=== PATIENT | male | born 1995 | race Caucasian/White ===

== ENCOUNTER 2016-11-27 17:03 | Inpatient (IN) | payer OTHER ==
--- NOTE | 2016-11-27 19:20 | EDPHY ---
Mental Health General Previous Psychiatric History: substance abuse, depression Smoking Status: Never smoked Time Patient Placed on Detainer: 19:09 Time Patient Placed on M1 Hold: 23:00 Time Medically Cleared for Psychiatric Evaluation: 20:02 Time of Transfer of Care: 00:[address] To [address]:: Tod Course: eval by mental health, awaiting acceptance to inpatient bed Narrative: CHIEF COMPLAINT: depression HISTORY OF PRESENT ILLNESS: 20-year-old male presents emergency department with his mother who was recommended to come here by his psychologist for depression. Patient has had worsening depression for the past 7 months, he stopped taking his Pristiq 1 year ago as he thought he was doing better. Patient started back to school this [place] and midway through July he stopped going to classes and stayed in his room all day, at [place] break he said he was too depressed to go back to school. He has been living with his mom and dad. Patient has a history of alcohol abuse and marijuana use, he reports no drug or alcohol use for 2 months. Patient reports suicidal thoughts with thoughts of overdosing. He states he has had thoughts of suicide before though never this severe. Patient denies auditory or visual hallucinations. He denies homicidal ideations. REVIEW OF SYSTEMS: A comprehensive 10 point review of systems is otherwise negative aside from elements mentioned in the history of present illness. Physical Exam Gen: Alert and Oriented, NAD HEENT: PERRL, moist mucous membranes NECK: no meningismus CV: regular rate and regular rhythm PULM: CTAB, no wheezes ABDOMEN: soft, non tender to palpation, BS present BACK: No CVA tenderness NEURO: Neurologically grossly intact EXTREMITIES: normal appearing SKIN: no rash or break in skin on exposed skin PSYCH: Flat affect, reports suicidal thoughts, denies homicidal thoughts, denies auditory or visual hallucinations (Alayna David) 0100 Care assumed by me from Alayna David pending placement. 0430 patient has been accepted to [facility] [address] [place] [address] Acevedo. I have completed them EMTALA form. (Clinton Baron) Medical Decision Makin-report passed on to at the end of my shift pending placement. ( Alayna David) - Objective Vital Signs: Initial Vital Signs Temperature (C) 36.8 C 11/27/16 17:15 Heart Rate 67 11/27/16 17:15 Respiratory Rate 16 11/27/16 17:15 Blood Pressure 111/54 L 11/27/16 17:15 O2 Sat (%) 97 11/27/16 17:15 O2 Delivery Mode Room Air Allergies/Adverse Reactions: No Known Allergies Allergy (Unverified 11/27/16 17:31) Home Medications: Medication Instructions Recorded NK [No Known Home Meds] 11/27/16 Laboratory Results: Laboratory Results 11/27/16 19:20 11/27/16 19:20 11/27/16 19:20 WBC 3.78 L 10^3/uL (3.80-9.50) RBC 5.07 10^6/uL (4.40-6.38) Hgb 16.3 g/dL (13.7-17.5) Hct 45.8 % (40.0-51.0) MCV 90.3 fL (81.5-99.8) MCH 32.1 pg (27.9-34.1) MCHC 35.6 g/dL (32.4-36.7) RDW 12.3 % (11.5-15.2) Plt Count 164 10^3/uL (150-400) MPV 9.4 fL (8.7-11.7) Neut % (Auto) 50.3 % (39.3-74.2) Lymph % (Auto) 38.6 % (15.0-45.0) [place] % (Auto) 8.2 % (4.5-13.0) Eos % (Auto) 2.1 % (0.6-7.6) Baso % (Auto) 0.8 % (0.3-1.7) Nucleat RBC Rel Count 0.0 % (0.0-0.2) Absolute Neuts (auto) 1.90 10^3/uL (1.70-6.50) Absolute Lymphs (auto) 1.46 10^3/uL (1.00-3.00) Absolute Monos (auto) 0.31 10^3/uL (0.30-0.80) Absolute Eos (auto) 0.08 10^3/uL (0.03-0.40) Absolute Basos (auto) 0.03 10^3/uL (0.02-0.10) Absolute Nucleated RBC 0.00 10^3/uL (0-0.01) Immature Gran % 0.0 % (0.0-1.1) Immature Gran # 0.00 10^3/uL (0.00-0.10) Sodium 141 mEq/L (134-144) Potassium 4.5 mEq/L (3.5-5.2) Chloride 105 mEq/L (97-110) Carbon Dioxide 28 mEq/l (22-31) Anion Gap 8 mEq/L (8-16) BUN 19 mg/dL (7-23) Creatinine 0.8 mg/dL (0.7-1.3) Estimated GFR > 60 Glucose 79 mg/dL (70-100) Calcium 8.9 mg/dL (8.5-10.4) Urine Opiates Screen NEGATIVE (NEGATIVE) Urine Barbiturates NEGATIVE (NEGATIVE) Ur Phencyclidine Scrn NEGATIVE (NEGATIVE) Ur Amphetamine Screen NEGATIVE (NEGATIVE) U Benzodiazepines Scrn NEGATIVE (NEGATIVE) Urine Cocaine Screen NEGATIVE (NEGATIVE) U Marijuana (THC) Screen NEGATIVE (NEGATIVE) Ethyl Alcohol < 10 mg/dL (0-10) Departure - Departure Disposition: [facility] IP Clinical Impression: Severe major depression Condition: Fair
[2016-11-27 19:33] LABS: ADD DIFF? NO; ADD MORPH? NO; ADD SCAN? NO; ATYPICAL LYMPHOCYTE FLAG 10 (0-99); FRAGMENT RBC FLAG 0 (0-99); HEMATOCRIT 45.8 % (40.0-51.0); HEMOGLOBIN 16.3 g/dL (13.7-17.5); LEFT SHIFT FLG 0 (0-99); LIPEMIA HEMOLYSIS FLAG 90 (0-99); MEAN CELL HEMOGLOBIN 32.1 pg (27.9-34.1); MEAN CELL HEMOGLOBIN CONCENTR. 35.6 g/dL (32.4-36.7); MEAN CELL VOLUME 90.3 fL (81.5-99.8); MEAN PLATELET VOLUME 9.4 fL (8.7-11.7); PLATELET CLUMPS FLAG 10 (0-99); PLATELET COUNT 164 10^3/uL (150-400); RED BLOOD CELL COUNT 5.07 10^6/uL (4.40-6.38); RED CELL DISTRIBUTION WIDTH 12.3 % (11.5-15.2)
[2016-11-27 19:45] LABS: ANION GAP 8 mEq/L (8-16); CALCIUM 8.9 mg/dL (8.5-10.4); CARBON DIOXIDE 28 mEq/l (22-31); CHLORIDE 105 mEq/L (97-110); CREATININE 0.8 mg/dL (0.7-1.3); ETHANOL SERUM < 10 mg/dL (0-10); GLOMERULAR FILTRATION RATE > 60; GLUCOSE 79 mg/dL (70-100); POTASSIUM 4.5 mEq/L (3.5-5.2); SODIUM 141 mEq/L (134-144)
[2016-11-28] MEDS ORDERED: MAG HYDROX/AL HYDROX/SIMETH 30 ML UDCUP PO PRN (03:36)
[2016-11-28] MEDS ORDERED: MAGNESIUM HYDROXIDE 30 ML UDCUP PO PRN (03:36)
[2016-11-28] MEDS ORDERED: LORazepam 0.5 MG TAB PO PRN (03:36)
[2016-11-28] MEDS ORDERED: NICOTINE POLACRILEX 2 MG GUM B PRN (03:36)
[2016-11-28] MEDS ORDERED: ACETAMINOPHEN 325 MG TAB PO PRN (03:36)
[2016-11-28] MEDS ORDERED: OLANZapine DISINTEGR 10 MG TAB PO PRN (03:37)
--- NOTE | 2016-11-28 14:38 | BAPA ---
[f rep st] ADMISSION PSYCHIATRIC ASSESSMENT CHIEF COMPLAINT: "I'm just really depressed." HISTORY OF PRESENT ILLNESS: Patient is a 20-year-old male who was referred to the emergenc y department today after seeing his therapist, Jody Castillo, and voicing thoughts of suicide. He states that he has been increasingly depressed for the past several months and has been home living with his parents in [place], [place]. He states that he has very poor energy and motivation and emory jacobs does not get out of bed. He states that if he does, he lays on the couch, watches television, or plays video games. He has a pattern of binge drinking 2-3 times a week and believes that this is an unhealthy pattern as well. He recently returned home after leaving college in [place]. He states that he did not complete the semester and just decided to quit, coming home to live with his parents . He was previously treated for depression with antidepressant medications including Pristiq and Cym isaac but states that these did not seem helpful. He most recently took Cymbalta for about 2 years b ut discontinued about a year and a half ago. He states that he does note for his depression to be wo rse now than it has been in the past. He reports the emergence of suicidal thoughts recently without a specific plan. He has seen his therapist 3 times and does not currently have a psychiatrist. He states in fact that he is not interested in psychiatric medication as this has not been helpful in th e past. PAST PSYCHIATRIC HISTORY: Largely as above though he also [facility] This program was apparently in [place] and was called [facility] He state s that he relapsed within 24 hours of leaving that facility. His drug of choice at that time was mar ijuana. He states now that he has not used marijuana in several months. He had previously taken Cym isaac and Pristiq and also had a brief trial of Wellbutrin. He states Wellbutrin was over activating and caused him to be extremely anxious. He denies any previous history of psychiatric hospitalizati ons or suicide attempts. ALLERGIES: No known medical allergies. CURRENT MEDICATIONS: None. PAST MEDICAL HISTORY: Noncontributory for any central nervous system disease. He has a history of s ome chronic back pain from injuries doing gymnastics. SOCIAL HISTORY: Patient is single, has no dependence. He is living with his parents in [place], [place]. He has 1 sister who lives in [place] and is . 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 He went to an [employer] in [place] near [place] and completed 1 year, but then struggled to complete any more time after that stating that he was "just too depressed." He believes his depression interfered with his ability to participate. He has no legal problems. SUBSTANCE USE HISTORY: Marijuana was his primary substance of choice, and he was using up to daily. He states he has not used for 3 months. Alcohol: Patient states he currently drinks alcohol several times a week in a binge pattern to the p oint of intoxication. Patient has also "experimented" with heroin, methamphetamine, ecstasy, and LSD. Exact pattern and am ount of use of these is unclear. FAMILY HISTORY: Noncontributory per patient. ADMISSION LABORATORY: CBC is normal with the exception of white count down at 3.78. Serum chemistri es are normal. Urine drug screen is negative for all substances. Alcohol is less than detectable. MENTAL STATUS EXAMINATION: Reveals a marginally groomed, casually dressed, pleasant, and cooperative male. He interacts well with the examiner, displaying good eye contact and a calm pleasan t demeanor. His affect is blunted, somewhat dysphoric, stable and appropriate. His mood is describe d as "depressed." His thought process is linear and goal directed. His thought content reveals no e vidence of psychosis. He is alert and oriented to person, place, time, and situation, and his sensor ium is clear. His intellect appears to be average as evidenced by his academic and occupational hist ory, his fund of knowledge, and vocabulary. He does not endorse any active thoughts of suicide at th is time. His insight and judgment appear to be fair. IMPRESSION: 1. Major depressive disorder, recurrent, severe, without psychosis. 2. Alcohol use disorder, moderate. 3. Cannabis use disorder, severe, not currently active. 4. Unemployment. 5. Academic problems. The patient is a 20-year-old, male with long history of depression. He states at this time , he would really like to seek treatment such that he would not be depressed. Collateral information obtained by [facility] from patient's mother indicates that she is very concerned for his safety to the ext ent of sleeping on an air mattress outside his bedroom door at night. Patient is currently unwilling to consider psychotropic medication including antidepressants though I have left it with him that we will discuss it further and have offered to give him whatever information he needs in regard to vari ous agents. PLAN: 1. Admit to the [facility] inpatient unit on an M1 hold. 2. Monitor closely for attempted self-harm and safety. 3. Will defer medications per patient's request at this time though will continue to discuss this wi th him. 4. Will engage his family and hopefully have a family meeting at some point during his stay. 5. Will communicate with patient's outpatient therapist and hopefully be able to facilitate followup with a psychiatrist as well. ESTIMATED LENGTH OF STAY: 3-5 days. /[id number]/MODL
--- NOTE | 2016-11-28 20:29 | BCON ---
[f rep st] BEHAVIORAL HEALTH CONSULTATION INTERNAL MEDICINE CONSULTATION DATE OF CONSULTATION: 11/28/2016 REFERRING PHYSICIAN: Anastasia Hanson MD REASON FOR CONSULTATION: Medical clearance for inpatient behavioral health stay. HISTORY OF PRESENT ILLNESS: The patient came to the emergency department with his mother on the recommendation of a psychologist for depression. He had recently dropped out of school and came back home to live with his parents. He was evaluated by the mental health team and admitted for further psychiatric care. He is currently without any acute complaints. PAST MEDICAL HISTORY: He has back pain, which he thinks is due to history of doing gymnastics. He reports he recently saw a back doctor who recommended physical therapy. PAST SURGICAL HISTORY: He denies any history of surgeries. MEDICATIONS: He was on no medications prior to admission. ALLERGIES: There are no known drug allergies. SOCIAL HISTORY: He has been a cigarette smoker but not currently. He has been a marijuana user and also tried other substances, but none currently. He has a binge pattern of using alcohol every few days in which he drinks to intoxication. FAMILY HISTORY: Noncontributory. REVIEW OF SYSTEMS: Other than back pain, a 10-point review of systems was done and was negative. PHYSICAL EXAM: VITAL SIGNS: Blood pressure is 125/66, heart rate is 50, respiratory rate 14, oxygen saturation 97% on room air, temperature is 36.7 degrees centigrade. His weight is 68 kg, for a body mass index of 20.9. GENERAL: This is a well-nourished, well-developed man, appears his chronologic age, cooperative, and in no acute distress. HEENT: Extraocular movements are intact. Pupils are equal, round, and reactive to light. Mucous membranes are moist. Dentition is in good condition. NECK: Supple. HEART: Regular rate and rhythm with no murmurs, rubs, or gallops. LUNGS: Clear to auscultation bilaterally. ABDOMEN: Soft, nontender, nondistended with normoactive bowel sounds. EXTREMITIES: There is no cyanosis, clubbing, or edema. NEUROLOGIC: He is alert and oriented x3. Cranial nerves 2-12 are grossly intact. There is no focal weakness. Sensation is intact to light touch and gait is within normal limits. LABORATORY STUDIES: From the emergency department, CBC showed a very slightly low white count of 3.78, likely of no clinical significance, with normal absolute neutrophil count. Serum chemistry revealed normal renal function and electrolytes. Toxicology screen in the serum was negative for ethyl alcohol, and the urine was negative for any substances of abuse. ASSESSMENT/RECOMMENDATIONS: 1. Mental health issues pending further evaluation and management per Psychiatry and the mental health team. 2. Back pain. He reports recent assessment by a back doctor. I agree with the plan for physical therapy and advised that he should proceed with that plan after discharge. 3. Leukopenia, likely an incidental finding. He can follow up with his primary care provider after discharge. I see no medical contraindications to the patient's continued stay on the inpatient behavioral health unit or to any psychiatric medications or procedures. Thank you very much for including me in the care of the patient. Please do not hesitate to contact me or the hospitalist service should there be need for further medical evaluation. /[id number]/MODL MTDD
--- NOTE | 2016-11-29 14:27 | SOAPPROG ---
SOAP Progress Note Assessment/Plan: Assessment: Plan: 11/29/16 14:26 Remains depressed. He is evasive and minimizing. He denies any active SI. Will CCM, monitor closely and reevaluate tomorrow in regards to appropriateness for d/c vs. STC. Subjective: Pt seen, discussed with staff. Remains isolative, superficial. Minimizes severity of mood issues while lamenting how his depression has not remitted. He remains against antidepressant treatment. Refused to go to groups yesterday , but is out of his room today at the prompting of the CC. Objective: Vital Signs Temp Pulse Resp BP Pulse Ox 36.6 C 45 L 16 106/52 L 94 11/29/16 06:00 11/29/16 06:00 11/29/16 06:00 11/29/16 06:00 11/29/16 06:00 - Time Spent With Patient Time Spent With Patient: 25" ICD10 Worksheet Patient Problems: Problems Problem Status Diagnosed Severe major depression Acute
[2016-11-30 06:48] VITALS: BP 109/56; PULSE 51; RESP 12; TEMP 97.8; O2SAT 97
--- NOTE | 2016-11-30 10:09 | SOAPPROG ---
SOAP Progress Note Assessment/Plan: Assessment: Pt is a 20 y/o S C male with a hx of cannabis and alcohol abuse as well as MDD without psychosis. Pt states he came to the ED "for help and I've been here for 3 days. Being here is making my depression worse. I want to get out into the sunshine-I would never hurt myself-ever." Plan:Pt is eating and sleeping well and denies SI does not want to take meds and feels being here is making him worse contracts for safety is D/C'd so will D/C to outpt tx 11/30/16 10:04 Subjective: "Being here is making me more depressed." Objective: Vital Signs Temp Pulse Resp BP Pulse Ox 36.6 C 51 L 12 109/56 L 97 11/30/16 06:00 11/30/16 06:00 11/30/16 06:00 11/30/16 06:00 11/30/16 06:00 Pt is A+O x4 mood-depressed affect-constr denies S/H I-contracts for safety if released poor energy and motivation thoughts-logical and coherent speech-wnl memory-intact no sx psychosis or ino slept 7.5 hours pt is eating well no LOW I/J-fair - Time Spent With Patient Time Spent With Patient: 20' - Pending Discharge Pending Discharge Within 24 Hours: Yes Pending Discharge Within 48 Hours: Yes Pending Discharge Date: 12/01/16 Pending Discharge Time: 11:00 ICD10 Worksheet Patient Problems: Problems Problem Status Diagnosed Severe major depression Acute
== END 2016-11-30 13:45 | disposition home or self-care (01) | DRG 885 ==
LOC: BBEH 11-28 03:14
PROVIDERS: ADMIT Psychiatry & Neurology Psychiatry; ATTEND Psychiatry & Neurology Psychiatry
DX: F33.2 Major depressive disorder, recurrent severe without psychotic features (principal)
CPT/HCPCS: 80305; G0480